=== PATIENT | male | born 1940 | race Caucasian/White ===

== ENCOUNTER → 2021-08-14 | Day surgery (SDC) | payer MEDICARE, OTHER ==
[~2021-08-14] VITALS: Ht 182.9 cm; Wt 90.5 kg
[~2021-08-14] MED LIST: ASPIRIN 32325 MG/TAB PO; BONINE25 MG PO; COREG 6.256.25 MG/TA PO; LIPITOR 80MG80 MG PO; MELATONIN ER10 MG PO; NITROSTAT0.4 MG/TAB SL; OMEGA-3 1000 MG1 CAP PO; PAPAYA ENZYME1 TA1 PO; PRINIVIL2.5 MG PO; PROTONIX 40MG T40 MG PO; VITAMIN E 400 U4001 PO
[2021-08-15 00:15] VITALS: TEMP 98.7
[2021-08-15 00:52] VITALS: BP 121/70; PULSE 69
== END ==
LOC: SDCO 20:11
DX: K29.30 Chronic superficial gastritis without bleeding (principal); K25.7 Chronic gastric ulcer without hemorrhage or perforation; Z87.891 Personal history of nicotine dependence
CPT/HCPCS: J2704; J3010

== ENCOUNTER 2021-09-04 08:22 | Day surgery (SDC) | payer MEDICARE, OTHER ==
[~2021-09-04] VITALS: Ht 182.9 cm; Wt 89.5 kg
[2021-09-04] MEDS ORDERED: PROTONIX 40MG T40 MG PO (10:24)
[2021-09-04] MEDS ORDERED: ASPIRIN 32325 MG/TAB PO (10:25)
[2021-09-04] MEDS ORDERED: LIPITOR 80MG80 MG PO (10:25)
[2021-09-04] MEDS ORDERED: OMEGA-3 1000 MG1 CAP PO (10:25)
[2021-09-04] MEDS ORDERED: COREG 6.256.25 MG/TA PO (10:26)
[2021-09-04] MEDS ORDERED: PRINIVIL2.5 MG PO (10:26)
[2021-09-04] MEDS ORDERED: MELATONIN ER10 MG PO (10:27)
[2021-09-04] MEDS ORDERED: BONINE25 MG PO (10:27)
[2021-09-04] MEDS ORDERED: NITROSTAT0.4 MG/TAB SL (10:29)
[2021-09-04] MEDS ORDERED: PAPAYA ENZYME1 TA1 PO (10:29)
[2021-09-04] MEDS ORDERED: VITAMIN E 400 U4001 PO (10:30)
[2021-09-04 10:37] VITALS: BP 119/73; PULSE 62; TEMP 97.8
[2021-09-04 11:25] VITALS: BP 100/66; PULSE 65; TEMP 96.9
--- NOTE | 2021-09-04 11:25 | NUR ---
PT arrived from procedure drowsy but oriented. PT assisted from cart to chair by RN. Monitors applied and VSS. Warm blanket provided. PT oriented to room and call oneal, within reach. is present. PT served hot coffee and a warm muffin per request. PT denies nausea. NO vomiting. Will monitor per intervals.
[2021-09-04 11:40] VITALS: BP 108/76; PULSE 62
--- NOTE | 2021-09-04 11:40 | NUR ---
VSS. PT denies nausea. NO vomiting. PT is conversing with his , while eating his muffin and continues to drink coffee. Call oneal remains within reach.
--- NOTE | 2021-09-04 11:50 | NUR ---
is speaking with the PT
[2021-09-04 11:55] VITALS: BP 122/79; PULSE 68
--- NOTE | 2021-09-04 11:55 | NUR ---
VSS. IV discontinued. Catheter tip intact. Pressure bandage applied. NO redness or swelling noted. DC instructons and educational material reviewed with the PT, who verbalized understanding and signed the related paperwork. PT denied needing assistance changing into personal belongings. Call oneal remains within reach if needed.
--- NOTE | 2021-09-04 12:21 | NUR ---
PT dismissed from endo via wheelchair to the PT entrence by Chey RPO. PT has DC packet and personal belonings, and was transferred into the care of his , who is driving private car.
== END 2021-09-04 12:25 ==
LOC: SDCO 08:22
DX: K22.2 Esophageal obstruction (principal); K29.30 Chronic superficial gastritis without bleeding; K44.9 Diaphragmatic hernia without obstruction or gangrene; Z87.891 Personal history of nicotine dependence
CPT/HCPCS: C1726; J2704; J7030